=== PATIENT | male | born 1985 | race Caucasian/White ===

== ENCOUNTER 2018-03-07 11:52 | Emergency (ER) | END 2018-03-07 15:30 | disposition home or self-care (01) ==

== ENCOUNTER 2018-03-24 11:21 | Emergency (ER) | END 2018-03-24 13:20 | disposition home or self-care (01) ==

== ENCOUNTER 2018-07-12 08:24 | Emergency (ER) | END 2018-07-12 10:51 | disposition home or self-care (01) ==

== ENCOUNTER 2018-10-11 09:36 | Emergency (ER) | payer OTHER ==
[~2018-10-11] VITALS: Ht 185.4 cm; Wt 98.0 kg
[~2018-10-11 09:36] MED LIST: DIPH1TAB PO; LACT1CAP17 PO; NAPR-985 PO; ONDA8TAB14 PO
[2018-10-11 09:40] VITALS: Ht 185.4 cm; Wt 98.0 kg
--- NOTE | 2018-10-11 10:48 | ERD ---
ER Documentation Chief Complaint Chief Complaint pt bib self with c/o cough, aches and pains, fever x 4 days HPI 32-year-old male, previously healthy, presents the emergency department, com plaining of flu symptoms for 4 days including fever, chills, cough, runny nose and general malaise. The patient has been taking [id number] medication without improvement of the symptoms. He denies chest pain, no shortness of breath. ROS All systems reviewed and are negative except as per history of present illness. Medications Home Meds Active Scripts Naproxen* (Naprosyn*) 500 Mg Tablet, 500 MG PO BID PRN for PAIN AND/OR INFLAMMATION, #30 TAB Prov:BRY CAMARA PA-C 07/12/18 Ondansetron (Ondansetron Odt) 8 Mg Tab.rapdis, 8 MG PO Q6H PRN for NAUSEA AND/OR VOMITING, #30 TAB Prov:BRY CAMARA PA-C 07/12/18 Lactobac Cmb #3/Fos/Pantethine (PROBIOTIC & ACIDOPHILUS CAP) 1 Each Capsule, 1 EACH PO DAILY for 30 Days, CAP Prov:JUAN PABLO HERNANDEZ MD 03/24/18 Diphenoxylate HCl/Atropine (Lomotil 2.5-0.025 mg Tablet) 1 Each Tablet, 1 TAB PO Q6H PRN for DIARRHEA, #30 TAB Prov:STACIE KAPADIA DO 03/07/18 Allergies Allergies: Coded Allergies: No Known Allergy (Unverified , 10/11/18) PMhx/Soc History of Surgery: No Anesthesia Reaction: No Hx Neurological Disorder: No Hx Respiratory Disorders: No Hx Cardiac Disorders: No Hx Psychiatric Problems: No Hx Miscellaneous Medical Probl: No Hx Alcohol Use: No Hx Substance Use: No Hx Tobacco Use: No Physical Exam Vitals Vital Signs Date Temp Pulse Resp B/P (MAP) Pulse Ox O2 O2 Flow FiO2 Time Delivery Rate 10/11/18 102.6 119 20 146/79 97 09:40 (101) Physical Exam Patient is in moderate distress due to cough and fever, vital signs showed fever. EYES: PERRLA, EOMI, injected sclerae EARS: Canals clear, erythematous tympanic membranes THROAT: Erythematous oropharynx. NECK: Supple, No lymphadenopathy. Full ROM without pain or tenderness. HEART: RRR, no rubs, murmurs, clicks or gallops. LUNGS: Bilateral rhonchi to auscultation. ABDOMEN: Soft, non-tender without masses or hepatosplenomegaly. EXTREMITIES: No edema bilaterally. BACK: Full ROM, no deformity, normal back exam NEURO: Cranial nerves grossly intact, no motor or sensory deficit Results 24 hrs Current Medications Medications Dose Sig/Maria Guadalupe Start Time Status Last (Trade) Ordered Route PRN Stop Time Admin Dose Reason Admin Sodium 1,000 ml @ Q1H ONCE 10/11/18 10/11/18 Chloride 1,000 mls/hr IV 11:00 10:56 10/11/18 11:59 Ibuprofen 600 mg ONCE ONCE 10/11/18 DC 10/11/18 (Motrin) PO 11:00 10:55 10/11/18 11:01 650 mg ONCE ONCE 10/11/18 DC 10/11/18 Acetaminophen PO 11:00 10:55 (Tylenol 10/11/18 11:01 Tab) Oseltamivir 75 mg ONCE ONCE 10/11/18 DC 10/11/18 Phosphate PO 11:00 10:55 (Tamiflu) 10/11/18 11:01 Ondansetron 4 mg ONCE STAT 10/11/18 DC 10/11/18 HCl (Zofran IV 11:33 11:37 Inj) 10/11/18 11:34 Procedures/MDM At the time of discharge, vital signs stable, no respiratory distress. Differential diagnosis include but not limited to: Respiratory infection bacterial/viral/fungal. Asthma/COPD, pneumonitis, allergies, GERD. Less likely foreign body aspiration, cardiac related, aspiration pneumonia, malignancy. Physical examination and clinical presentation consistent most likely with influenza. During the ED course the patient remained stable, fever resolved with medication s given in the ER, no new complaints. Clinical impression discussed with patient who agrees with management. The patient is stable to be treated outpatient and will be discharged home with a Rx for antiviral medication and ibuprofen, antibiotics not indicated at this time. Some side effects of prescribed medications (headache, rash, nausea, vomiting, diarrhea, drowsiness, habituation, bleeding, hypertension, interactions with other medications) were reviewed. The patient was instructed to follow up with the primary care provider in the next 48h. If symptoms persist, worsen or new symptoms develop, then patient should return to the ED immediately. Disclaimer: Inadvertent spelling and grammatical errors are likely due to EHR/dictation software use and do not reflect on the overall quality of patient care. Also, please note that the electronic time recorded on this note does not necessarily reflect the actual time of the patient encounter. Departure Diagnosis: Primary Impression: Influenza-like symptoms Condition: Stable Additional Instructions: Thank you very much for allowing us to participate in your care. Your health and safety is our top priority at [facility]. Call your primary care doctor TOMORROW for an appointment during the next 2-4 days and bring all the information and medications prescribed. Have prescriptions filled and follow precisely the directions on the label. If the symptoms get worse and your provider is unavailable, return to the Emergency Department immediately. JUAN PABLO HERNANDEZ MD Oct 11, 2018 10:48
[2018-10-11] MEDS ORDERED: OSELTAMIVIR 75 MG CAP PO ONE (11:00)
[2018-10-11] MEDS ORDERED: SOD CHLORIDE 0.9% 1,000 ML IV ONE (11:00)
[2018-10-11] MEDS ORDERED: IBUPROFEN 600 MG TAB PO ONE (11:00)
[2018-10-11] MEDS ORDERED: ACETAMINOPHEN 325 MG TAB PO ONE (11:00)
[2018-10-11] MEDS ORDERED: ONDANSETRON 4 MG INJ IV STA (11:33)
[2018-10-11] MEDS ORDERED: OSEL75CA23 PO (11:52)
[2018-10-11] MEDS ORDERED: IBUP-1542 PO (11:52)
[2018-10-11] MEDS ORDERED: ACET325T33 PO (11:52)
[2018-10-11 12:05] VITALS: BP 97/57; PULSE 100; RESP 18
== END 2018-10-11 12:07 | disposition home or self-care (01) ==
LOC: FTE 09:36
DX: R05 Cough (principal); R52 Pain, unspecified; R50.9 Fever, unspecified
CPT/HCPCS: 96361; 96374; J2405; J7030; Z7502; Z7610